=== PATIENT | female | born 1950 | race African-American/Black ===

== ENCOUNTER 2017-12-01 09:46 | Emergency (ER) | payer OTHER ==
[~2017-12-01] VITALS: Ht 154.9 cm; Wt 60.3 kg
[2017-12-01 09:48] VITALS: BP 148/70
== END 2017-12-01 11:10 | disposition home or self-care (01) ==
LOC: ER 09:46
DX: M25.551 Pain in right hip (principal); M25.552 Pain in left hip; M54.5 Low back pain; M25.561 Pain in right knee; M53.3 Sacrococcygeal disorders, not elsewhere classified; W18.39XA Other fall on same level, initial encounter; Y93.02 Activity, running; Y92.89 Other specified places as the place of occurrence of the external cause; Y99.8 Other external cause status